=== PATIENT | female | born 1975 | race Caucasian/White ===

== ENCOUNTER 2019-07-02 17:16 | Emergency (ER) | payer MEDICAID ==
[~2019-07-02] VITALS: Ht 170.2 cm; Wt 54.5 kg
[2019-07-02 17:24] VITALS: Ht 170.2 cm; Wt 54.5 kg
[2019-07-02 17:51] LABS: BASOPHILS 0.2 % (0-2); EOSINOPHILS 0.4 % (0-7); HEMATOCRIT 36.8 % (36.0-48.0); HEMOGLOBIN 12.7 g/dL (12-16); IMMATURE GRANULOCYTES 0.2 % (0-5); LYMPHOCYTES 32.2 % (15-50); MCH 30.8 pg (26.0-34.0); MCHC 34.5 g/dL (31.0-37.0); MCV 89.1 fL (80.0-100.0); MEAN PLATELET VOLUME 8.8 fL (7.4-10.4); MONOCYTES 4.2 % (2-11); NEUTROPHILS 62.8 % (40-80); PLATELET COUNT 263 10x3/uL (130-400); RBC 4.13 10x6/uL (4.00-5.40); RDW 13.3 % (11.5-14.5); WBC 9.3 10x3/uL (4.8-10.8)
--- NOTE | 2019-07-02 18:05 | NUR ---
SUICIDE ASSESSMENT BEGUN AND PATIENT ANSWERED THE FIRST FEW QUESTIONS. PATIENT STATED, "I KNOW WHERE THIS IS GOING AND I DON'T WANT TO GO TO A PSYCH HOSPITAL....THEREFORE, I AM NOT GOING TO ANSWER ANY MORE QUESTIONS. IT'S NOTHING PERSONAL WITH YOU. I JUST WON'T ANSWER ANY MORE QUESTIONS." PATIENT REFUSED TO PARTICIPATE IN SAFETY PLAN WELL. PHYSICIAN NOTIFIED. PATIENT QUITE DEMANDING, REQUESTING A PILLOW, ANOTHER MEAL TRAY, AND TO USE THE PHONE. PATIENT HAD A STRONG SMELL OF ETOH AND WAS QUITE BELLIGERANT.
--- NOTE | 2019-07-02 18:13 | NUR ---
DR HOWARD NOTIFIED AND [id number] SITTER ORDERED. SITTER AT BEDSIDE. NOTIFIED CHARGE NURSE AND ATTENDING PHYSICIAN IN REGARDS TO ASSESSMENT FINDINGS. RESOURCES GIVEN TO PT AND AND SAFETY PLAN INITIATED.
[2019-07-02 18:15] LABS: ALBUMIN 3.1 g/dL (3.4-5.0); ANION GAP 19.2 mmol/L (8-16); BILIRUBIN - TOTAL 0.17 mg/dL (0.2-1.3); CALCIUM 8.4 mg/dL (8.5-10.1); CARBON DIOXIDE 22.4 mmol/L (21.0-32.0); CREATININE - SERUM 1.1 mg/dL (0.6-1.3); POTASSIUM - SERUM 3.6 mmol/L (3.5-5.1); PROTEIN - SERUM 7.2 g/dL (6.4-8.2)
--- NOTE | 2019-07-02 18:17 | NUR ---
PATIENT SPEAKING ON PHONE AND WAS QUITE TEARFUL AT THIS TIME, YELLING TO PERSON ON OTHER END OF THE CALL.
[2019-07-02 18:22] LABS: MAGNESIUM - SERUM 1.6 mg/dL (1.8-2.4)
[2019-07-02 19:33] LABS: APPEARANCE CLEAR (CLEAR); BILIRUBIN NEGATIVE (NEGATIVE); COLOR YELLOW (YELLOW); GLUCOSE NEGATIVE (NEGATIVE); KETONE NEGATIVE (NEGATIVE); NITRITE NEGATIVE (NEGATIVE); PROTEIN NEGATIVE (NEGATIVE); UROBILINOGEN NORMAL (NORMAL)
[2019-07-02 19:34] LABS: BACTERIA MODERATE /hpf (NONE SEEN); EPITHELIAL CELLS 0-5 /hpf (0-5); WHITE CELLS - URINE 0-5 /hpf (0-5)
[2019-07-02 19:36] LABS: UDS - AMPHET NEGATIVE QUAL (NEGATIVE); UDS - BARB NEGATIVE QUAL (NEGATIVE); UDS - BENZO POSITIVE QUAL (NEGATIVE); UDS - COCAINE NEGATIVE QUAL (NEGATIVE); UDS - OPIATE NEGATIVE QUAL (NEGATIVE); UDS - PCP NEGATIVE QUAL (NEGATIVE); UDS - THC POSITIVE QUAL (NEGATIVE)
[2019-07-03 02:07] VITALS: BP 118/76
== END 2019-07-03 03:01 ==
LOC: D.ER 17:16
PROVIDERS: Emergency Medicine
DX: R45.851 Suicidal ideations (principal); F10.10 Alcohol abuse, uncomplicated; F13.10 Sedative, hypnotic or anxiolytic abuse, uncomplicated; E83.42 Hypomagnesemia

== ENCOUNTER → 2021-03-13 | Emergency (ER) | payer OTHER ==
[~2021-03-13] VITALS: Ht 170.2 cm; Wt 54.5 kg
[~2021-03-13] MED LIST: CELEXA40 MG PO; VISTARIL25 MG PO
[2021-03-13 18:14] VITALS: Ht 170.2 cm; Wt 54.5 kg
[2021-03-13 18:36] VITALS: BP 120/75
== END | disposition home or self-care (01) ==
LOC: D.ER 18:10
DX: F41.9 Anxiety disorder, unspecified (principal); R03.0 Elevated blood-pressure reading, without diagnosis of hypertension

== ENCOUNTER 2021-03-21 08:14 | Emergency (ER) | payer OTHER ==
[~2021-03-21] VITALS: Ht 170.2 cm; Wt 54.5 kg
[2021-03-21 08:17] VITALS: Ht 170.2 cm; Wt 54.5 kg
[2021-03-21 09:58] VITALS: BP 140/81
== END 2021-03-21 10:12 | disposition home or self-care (01) ==
LOC: D.ER 08:14
DX: M25.811 Other specified joint disorders, right shoulder (principal); S00.83XA Contusion of other part of head, initial encounter; I10 Essential (primary) hypertension; Z72.0 Tobacco use; X58.XXXA Exposure to other specified factors, initial encounter

== ENCOUNTER 2021-04-09 06:04 | Emergency (ER) | payer OTHER ==
[~2021-04-09] VITALS: Ht 170.2 cm; Wt 52.7 kg
[2021-04-09 06:05] VITALS: Ht 170.2 cm; Wt 52.7 kg
[2021-04-09 06:25] LABS: BASOPHILS 0.7 % (0-2); EOSINOPHILS 0.7 % (0-7); HEMATOCRIT 34.9 % (36.0-48.0); HEMOGLOBIN 11.1 g/dL (12-16); IMMATURE GRANULOCYTES 0.2 % (0-5); LYMPHOCYTE ABS# 2.03 10x3/uL (1.18-3.74); LYMPHOCYTES 44.3 % (15-50); MCHC 31.8 g/dL (31.0-37.0); MCV 75.5 fL (80.0-100.0); MEAN PLATELET VOLUME 8.1 fL (7.4-10.4); MONOCYTES 12.9 % (2-11); NEUTROPHIL ABS# 1.89 10x3/uL (1.56-6.13); NEUTROPHILS 41.2 % (40-80); RBC 4.62 10x6/uL (4.00-5.40); RDW 18.7 % (11.5-14.5); WBC 4.6 10x3/uL (4.8-10.8)
[2021-04-09 06:26] LABS: PLATELET COUNT 396 10x3/uL (130-400)
[2021-04-09 06:34] LABS: CALC OSMOLALITY 279 mosm/kg (275-300); CALCIUM 8.6 mg/dL (8.5-10.1); CARBON DIOXIDE 25.6 mmol/L (21.0-32.0); CHLORIDE - SERUM 100 mmol/L (98-107); CREATININE - SERUM 0.7 mg/dL (0.6-1.3); POTASSIUM - SERUM 4.3 mmol/L (3.5-5.1); SODIUM 138 mmol/L (136-145); UREA NITROGEN 11 mg/dL (7-18); eGFR NON AFRICAN AMERICAN > 90 mL/min (90-120)
[2021-04-09 06:35] LABS: GLUCOSE 185 mg/dL (74-106)
[2021-04-09 06:36] LABS: HCG SERUM NEGATIVE (NEGATIVE)
[2021-04-09 06:43] LABS: ALBUMIN 3.5 g/dL (3.4-5.0); ALKALINE PHOSPHATASE 69 U/L (30-120); ALT (SGPT) 30 U/L (10-68)
[2021-04-09 06:44] LABS: TROPONIN-I < 0.017 ng/mL (0.000-0.060)
[2021-04-09 06:54] VITALS: BP 141/94
== END 2021-04-09 06:55 | disposition home or self-care (01) ==
LOC: D.ER 06:04
PROVIDERS: Student in an Organized Health Care Education/Training Program
DX: R00.2 Palpitations (principal); F15.10 Other stimulant abuse, uncomplicated; I10 Essential (primary) hypertension

== ENCOUNTER 2021-04-09 07:40 | Emergency (ER) | payer OTHER ==
[~2021-04-09] VITALS: Ht 167.6 cm; Wt 51.8 kg
[2021-04-09 08:12] VITALS: BP 137/87; Ht 167.6 cm; Wt 51.8 kg
[2021-04-09 08:38] LABS: BILIRUBIN NEGATIVE (NEGATIVE); HCG URINE NEGATIVE (NEGATIVE); KETONE NEGATIVE (NEGATIVE); NITRITE NEGATIVE (NEGATIVE); UROBILINOGEN NORMAL mg/dL (< 2)
[2021-04-09 08:41] LABS: BACTERIA MANY HPF (NONE SEEN); SQUAMOUS EPITHELIAL 0-5 HPF (0-4); WHITE CELLS - URINE 0-5 HPF (0-4)
[2021-04-09 08:43] LABS: BASOPHILS 0.7 % (0-2); EOSINOPHILS 0.5 % (0-7); HEMATOCRIT 33.9 % (36.0-48.0); HEMOGLOBIN 10.7 g/dL (12-16); LYMPHOCYTE ABS# 1.52 10x3/uL (1.18-3.74); LYMPHOCYTES 34.4 % (15-50); MCHC 31.6 g/dL (31.0-37.0); MEAN PLATELET VOLUME 8.3 fL (7.4-10.4); MONOCYTES 8.6 % (2-11); NEUTROPHIL ABS# 2.47 10x3/uL (1.56-6.13); NEUTROPHILS 55.8 % (40-80); PLATELET COUNT 390 10x3/uL (130-400); RBC 4.46 10x6/uL (4.00-5.40); RDW 18.8 % (11.5-14.5); WBC 4.4 10x3/uL (4.8-10.8)
[2021-04-09 08:48] LABS: UDS - AMPHET POSITIVE QUAL (NEGATIVE); UDS - BARB NEGATIVE QUAL (NEGATIVE); UDS - BENZO NEGATIVE QUAL (NEGATIVE); UDS - COCAINE NEGATIVE QUAL (NEGATIVE); UDS - OPIATE NEGATIVE QUAL (NEGATIVE); UDS - PCP NEGATIVE QUAL (NEGATIVE); UDS - THC NEGATIVE QUAL (NEGATIVE)
[2021-04-09 08:51] LABS: CALC OSMOLALITY 283 mosm/kg (275-300); CALCIUM 8.6 mg/dL (8.5-10.1); CARBON DIOXIDE 24.4 mmol/L (21.0-32.0); CHLORIDE - SERUM 101 mmol/L (98-107); CREATININE - SERUM 0.8 mg/dL (0.6-1.3); GLUCOSE 260 mg/dL (74-106); POTASSIUM - SERUM 4.5 mmol/L (3.5-5.1); SODIUM 138 mmol/L (136-145); UREA NITROGEN 11 mg/dL (7-18); eGFR NON AFRICAN AMERICAN 82 mL/min (90-120)
[2021-04-09 08:56] LABS: SARS-CoV-2 ANTIGEN NEGATIVE- SARS-COV-2 (NEGATIVE)
[2021-04-09 08:57] LABS: ALBUMIN 3.3 g/dL (3.4-5.0); ALKALINE PHOSPHATASE 67 U/L (30-120); ALT (SGPT) 29 U/L (10-68); BILIRUBIN - TOTAL 0.21 mg/dL (0.2-1.3); MAGNESIUM - SERUM 1.8 mg/dL (1.8-2.4); PROTEIN - SERUM 7.6 g/dL (6.4-8.2)
== END 2021-04-09 10:07 | disposition home or self-care (01) ==
LOC: D.ER 07:40
PROVIDERS: Family Medicine
DX: S02.2XXA Fracture of nasal bones, initial encounter for closed fracture (principal); Z76.5 Malingerer [conscious simulation]; I10 Essential (primary) hypertension; Z72.0 Tobacco use; W19.XXXA Unspecified fall, initial encounter; Y93.9 Activity, unspecified; Y92.9 Unspecified place or not applicable; R56.9 Unspecified convulsions

== ENCOUNTER 2021-04-20 02:11 | Emergency (ER) | payer OTHER ==
[~2021-04-20] VITALS: Ht 167.6 cm; Wt 54.4 kg
[2021-04-20 02:13] VITALS: BP 136/92; Ht 167.6 cm; Wt 54.4 kg
[2021-04-20 02:45] LABS: BASOPHILS 2.1 % (0-2); EOSINOPHILS 0.5 % (0-7); HEMATOCRIT 34.2 % (36.0-48.0); HEMOGLOBIN 10.8 g/dL (12-16); LYMPHOCYTES 45.3 % (15-50); MCH 24.4 pg (26.0-34.0); MCHC 31.7 g/dL (31.0-37.0); MCV 77.2 fL (80.0-100.0); MEAN PLATELET VOLUME 6.2 fL (7.4-10.4); MONOCYTES 8.1 % (2-11); RBC 4.43 10x6/uL (4.00-5.40); RDW 21.6 % (11.5-14.5); WBC 4.5 10x3/uL (4.8-10.8)
[2021-04-20 02:46] LABS: PLATELET COUNT 566 10x3/uL (130-400)
[2021-04-20 02:52] LABS: CALC OSMOLALITY 283 mosm/kg (275-300); CALCIUM 8.4 mg/dL (8.5-10.1); CARBON DIOXIDE 31.4 mmol/L (21.0-32.0); CHLORIDE - SERUM 102 mmol/L (98-107); CREATININE - SERUM 0.6 mg/dL (0.6-1.3); POTASSIUM - SERUM 3.8 mmol/L (3.5-5.1); SODIUM 143 mmol/L (136-145); UREA NITROGEN 10 mg/dL (7-18); eGFR NON AFRICAN AMERICAN > 90 mL/min (90-120)
[2021-04-20 02:53] LABS: GLUCOSE 93 mg/dL (74-106)
[2021-04-20 02:59] LABS: ALBUMIN 3.8 g/dL (3.4-5.0); ALKALINE PHOSPHATASE 61 U/L (30-120); ALT (SGPT) 33 U/L (10-68); BILIRUBIN - TOTAL 0.11 mg/dL (0.2-1.3); MAGNESIUM - SERUM 2.1 mg/dL (1.8-2.4); PROTEIN - SERUM 8.4 g/dL (6.4-8.2)
== END 2021-04-20 03:12 | disposition left against medical advice (07) ==
LOC: D.ER 02:11
PROVIDERS: Student in an Organized Health Care Education/Training Program
DX: F10.129 Alcohol abuse with intoxication, unspecified (principal); Y90.8 Blood alcohol level of 240 mg/100 ml or more; I10 Essential (primary) hypertension